=== PATIENT | female | born 1980 | race Caucasian/White ===

== ENCOUNTER 2016-12-22 13:46 | Day surgery (SDC) | payer OTHER ==
[2016-12-18 10:27] VITALS: BMI 23.2
[2016-12-22] MEDS ORDERED: MIDAZOLAM HCL 2 MG/2 ML SINGLE DOSE VIAL ONE (13:54)
[2016-12-22] MEDS ORDERED: PROPOFOL 20 ML ONE ×2 (14:11)
[2016-12-22] MEDS ORDERED: ePHEDrine SULFATE 50 MG/1 ML AMPULE ONE (15:20)
[2016-12-22] MEDS ORDERED: IBUPROFEN 600 MG TABLET (FP) PO PRN (15:30)
[2016-12-22] MEDS ORDERED: IBUPROFEN 800 MG/8 ML IJ IVPB PRN (15:30)
[2016-12-22] MEDS ORDERED: oxyCODONE HCL 5 MG TABLET PO PRN ×2 (15:30→15:32)
[2016-12-22] MEDS ORDERED: ELECTROLYTE-148 SOLN 1,000 ML IV SCH (15:30)
[2016-12-22] MEDS ORDERED: ONDANSETRON 4 MG/2 ML VIAL IVPB PRN (15:30)
[2016-12-22] MEDS ORDERED: LACTATED RINGERS SOLUTION 1,000 ML IV SCH (15:45)
[2016-12-22 16:23] VITALS: TEMP 97.6
[2016-12-22 16:54] VITALS: PULSE 66
[2016-12-22 17:37] VITALS: BP 113/70
--- NOTE | 2016-12-23 09:36 | HP ---
Past Medical History - Primary Care Physician PCP:: Anshu Hillman - Admission Chief Complaint: severe cervical dysplasia History of Present Illness: 36 yo f with hx of severe cervical dysplasia admitted for leep cone, rba discussed , aware risks of infection, bleeding, infertility, incomptent cervix , and post op complication сергей anesthesia risks History Source: Family Member Limitations to Obtaining History: Language Barrier - Past Medical History ...: 1 ...Para: 1 Additional OB History: c/s - Past Surgical History Past Surgical History: Yes: Hx Myomectomy: No Hx Transabdominal Cerclage: No - Smoking History Smoking history: Never smoked Have you smoked in the past 12 months: No - Alcohol/Substance Use Hx Alcohol Use: No History of Substance Use: reports: None - Social History Usual Living Arrangement: Yes: With Spouse History of Recent Travel: No Home Medications - Allergies Allergies/Adverse Reactions: Allergies Allergy/AdvReac Type Severity Reaction Status Date / Time No Known Allergies Allergy Verified 12/22/16 14:08 - Home Medications Home Medications: Ambulatory Orders Ibuprofen [Motrin -] 600 mg PO QID #28 tablet 12/22/16 Review of Systems - Review of Systems Constitutional: reports: No Symptoms HENT: reports: No Symptoms Neck: reports: No Symptoms Cardiovascular: reports: No Symptoms Respiratory: reports: No Symptoms Gastrointestinal: reports: No Symptoms Genitourinary: reports: No Symptoms Breasts: reports: No Symptoms Reported Musculoskeletal: reports: No Symptoms Integumentary: reports: No Symptoms Neurological: reports: No Symptoms Endocrine: reports: No Symptoms Hematology/Lymphatic: reports: No Symptoms Psychiatric: reports: No Symptoms Physical Exam-HORTICULTURE WORKER Vital Signs: Vital Signs Temperature 97.6 F 12/22/16 16:10 Pulse Rate 66 12/22/16 17:35 Respiratory Rate 16 12/22/16 17:35 Blood Pressure 113/70 12/22/16 17:35 O2 Sat by Pulse Oximetry (%) 100 12/22/16 16:10 Constitutional: Yes: Well Nourished, No Distress, Calm Eyes: Yes: WNL, Conjunctiva Clear, EOM Intact HENT: Yes: WNL, Atraumatic, Normocephalic Neck: Yes: WNL, Supple, Trachea Midline Cardiovascular: Yes: WNL, Regular Rate and Rhythm Respiratory: Yes: WNL, Regular, CTA Bilaterally. No: On Venti-Mask Gastrointestinal: Yes: WNL ...Rectal Exam: Yes: WNL Renal/: Yes: WNL External Genitalia: Yes: Normal Vaginal Exam: Yes: Normal Cervix: Yes: Normal Uterus: Yes: Normal Adnexa: Not Palpable: Left, Right Breast(s): Yes: WNL Musculoskeletal: Yes: WNL Extremities: Yes: WNL Integumentary: Yes: WNL Neurological: Yes: WNL, Alert, Oriented ...Motor Strength: WNL Psychiatric: Yes: WNL, Alert, Oriented Problem List - Problem (1) Severe cervical dysplasia Code(s): D06.9 - CARCINOMA IN SITU OF CERVIX, UNSPECIFIED Assessment/Plan leep cone ,ecc, rba discussed
--- NOTE | 2016-12-24 08:46 | OP ---
DATE OF OPERATION: 12/22/2016 PREOPERATIVE DIAGNOSIS: Severe cervical dysplasia. POSTOPERATIVE DIAGNOSIS: Severe cervical dysplasia. PROCEDURES: Loop electrosurgical excision procedure cone biopsy and endocervical curettage. SURGEON: Anshu Hillman MD ANESTHESIA: General. ESTIMATED BLOOD LOSS: 50 mL. OPERATION: The patient was taken to the operating room and had adequate general anesthesia. Examination under anesthesia revealed external genitalia to be normal, vagina was normal, cervix with no gross lesions, a mobile uterus of normal size, adnexa had no masses palpable. Then, with the grasper clamping the vagina, the vagina and cervix were saturated with 4% acetic acid. Then, area of NELA was identified and then Lugol was applied on the cervix and the vagina. Then, with loop cautery, the area of NELA was excised in its entirety and then endocervical curetting was done. The edges were cleaned. Then, with the ball cautery, the area was cauterized and hemostasis was established. The patient tolerated the procedure well and left the OR in good condition. ANSHU HILLMAN M.D. [id number]
--- NOTE | 2016-12-24 12:06 | PATH ---
Surgical Pathology Report Patient Name: JANELL GIL [facility]. Rec. #: [id number] /Age/Gender: 1980 (Age: 36) / F Account: [id number] Location: [facility] Taken: 12/22/2016 Received: 12/23/2016 Reported: 12/24/2016 Physicians: Anshu Hillman M.D. Specimen(s) Received A: LEEP CONE BX B: ENDOCERVICAL CURETTINGS Clinical History Cervical dysplasia Final Diagnosis A. CERVIX, LEEP CONE BIOPSY: DETACHED FRAGMENT OF SQUAMOUS EPITHELIUM WITH HIGH GRADE SQUAMOUS INTRAEPITHELIAL NEOPLASIA (CERVICAL INTRAEPITHELIAL NEOPLASIA 3/NELA 3); FOCUS OF LOW GRADE INTRAEPITHELIAL LESION ALSO PRESENT. SURGICAL RESECTION MARGINS: LIMITED ASSESSMENT DUE TO FRAGMENTED NATURE OF THE SPECIMEN AND DETACHEMENT OF DYSPLASTIC EPITHELIUM. TRANSFORMATION ZONE: FOCALLY PRESENT. B. ENDOCERVIX, CURETTAGE: FRAGMENTS OF BENIGN ENDOCERVICAL TISSUE. Electronically Signed Yoseph Borrego M.D. Gross Description A. Received in formalin labeled "LEEP cone biopsy" are 5 harkins, irregular, unoriented portions of soft tissue ranging from 0.8 x 0.4 x 0.1 cm to 1.4 x 0.8 x 0.3 cm. The specimens are inked blue, serially sectioned and entirely submitted in 4 cassettes. B. Received in formalin labeled "endocervical curettings" is a 1.2 x 1.0 x 0.3 cm aggregate of blood-tinged mucus, possibly containing soft tissue fragments. The formalin is filtered and the specimen is entirely submitted in one cassette. 12/23/2016 [facility]12/23/2016
== END 2016-12-22 17:40 | disposition home or self-care (01) ==
LOC: JASU-SURG 13:46
PROVIDERS: ATTEND Obstetrics & Gynecology
PROC: 0UBC7ZZ Excision of Cervix, Via Natural or Artificial Opening (ICD-10-PCS; principal; 2016-12-22 14:30)
DX: D06.7 Carcinoma in situ of other parts of cervix (principal)
CPT/HCPCS: 84703; 88305-TC; 88307-TC; 94760

== ENCOUNTER 2017-06-02 07:25 | Day surgery (SDC) | payer OTHER ==
[2017-05-27 11:19] VITALS: BMI 24.4
--- NOTE | 2017-06-02 09:13 | HP ---
Past Medical History - Primary Care Physician PCP:: Anshu Hillman - Admission Chief Complaint: HIGH GRADE CERVICAL DYSPLASIA History Source: Patient Limitations to Obtaining History: Language Barrier - Past Surgical History Past Surgical History: Yes: Hx Myomectomy: No Hx Transabdominal Cerclage: No Additional Surgical History: leep cone biopsy .november 2016. path report high grade dysplasis - Smoking History Smoking history: Never smoked Have you smoked in the past 12 months: No - Alcohol/Substance Use Hx Alcohol Use: No History of Substance Use: reports: None - Social History History of Recent Travel: No Home Medications - Allergies Allergies/Adverse Reactions: Allergies Allergy/AdvReac Type Severity Reaction Status Date / Time No Known Allergies Allergy Verified 06/02/17 08:06 - Home Medications Home Medications: Ambulatory Orders Ibuprofen [Motrin -] 600 mg PO QID #28 tablet 06/02/17 Review of Systems - Review of Systems Constitutional: reports: No Symptoms Eyes: reports: No Symptoms HENT: reports: No Symptoms Neck: reports: No Symptoms Cardiovascular: reports: No Symptoms Respiratory: reports: No Symptoms Gastrointestinal: reports: No Symptoms Genitourinary: reports: No Symptoms Breasts: reports: No Symptoms Reported Musculoskeletal: reports: No Symptoms Integumentary: reports: No Symptoms Neurological: reports: No Symptoms Endocrine: reports: No Symptoms Hematology/Lymphatic: reports: No Symptoms Psychiatric: reports: No Symptoms 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 Vital Signs: Vital Signs Temperature 98.0 F 06/02/17 08:04 Pulse Rate 67 05/27/17 11:12 Respiratory Rate 20 06/02/17 08:04 Blood Pressure 116/81 06/02/17 08:04 O2 Sat by Pulse Oximetry (%) 100 06/02/17 08:03 Constitutional: Yes: Well Nourished, No Distress, Calm Eyes: Yes: WNL, Conjunctiva Clear, EOM Intact HENT: Yes: WNL, Atraumatic, Normocephalic Neck: Yes: WNL, Supple, Trachea Midline Cardiovascular: Yes: WNL, Regular Rate and Rhythm Respiratory: Yes: WNL, Regular, CTA Bilaterally Gastrointestinal: Yes: WNL ...Rectal Exam: Yes: WNL Renal/: Yes: WNL Vaginal Exam: Yes: Normal Cervix: Yes: Normal Uterus: Yes: Normal Adnexa: Not Palpable: Left, Right Breast(s): Yes: WNL Musculoskeletal: Yes: WNL Extremities: Yes: WNL Integumentary: Yes: WNL Neurological: Yes: WNL, Alert, Oriented ...Motor Strength: WNL Psychiatric: Yes: WNL, Alert, Oriented Problem List - Problem (1) High grade squamous intraepithelial cervical dysplasia Code(s): R87.613 - HIGH GRADE INTREPITH LESION CYTO SMR CRVX (HGSIL) Assessment/Plan LEEP CONE, ecc, RISKS DISCUSSED , RISKS OF BLEEDING, INFECTION, CERVICAL INCOMPTENCY, INFERTILITY .AND INJURY TO SURROUNDING TISSUE
[2017-06-02] MEDS ORDERED: MIDAZOLAM HCL 2 MG/2 ML SINGLE DOSE VIAL ONE (10:00)
[2017-06-02] MEDS ORDERED: oxyCODONE HCL 5 MG TABLET PO PRN (10:27)
[2017-06-02] MEDS ORDERED: IBUPROFEN 800 MG/8 ML IJ IVPB PRN (10:27)
[2017-06-02] MEDS ORDERED: IBUPROFEN 600 MG TABLET (FP) PO PRN (10:27)
[2017-06-02] MEDS ORDERED: ONDANSETRON 4 MG/2 ML VIAL IVPUSH PRN ×2 (10:27→11:20)
[2017-06-02] MEDS ORDERED: ELECTROLYTE-148 SOLN 1,000 ML IV SCH (10:30)
[2017-06-02] MEDS ORDERED: PROMETHAZINE HCL 25 MG/1 ML VIAL IVPB PRN (11:20)
[2017-06-02 12:20] VITALS: TEMP 97.9
[2017-06-02 13:45] VITALS: BP 112/65; PULSE 75
--- NOTE | 2017-06-03 11:28 | OP ---
DATE OF OPERATION: 06/02/2017 PREOPERATIVE DIAGNOSIS: High-grade cervical dysplasia. POSTOPERATIVE DIAGNOSIS: High-grade cervical dysplasia. PROCEDURE: Excision of the cervical area with cautery and colposcopy. SURGEON: Anshu Hillman MD ANESTHESIA: General. ANESTHESIOLOGIST: Jyothi Singleton MD ESTIMATED BLOOD LOSS: 30 mL. DESCRIPTION OF PROCEDURE: The patient was taken to the operating room, and under adequate general anesthesia in dorsal lithotomy position, examination under anesthesia revealed external genitalia to be normal. Vagina was normal. Cervix was adherent both fornices to the vaginal wall. Uterus was normal sized. Adnexa, no masses were palpable. Then, with a Glass speculum in the vagina, cervix was visualized. Cervix appeared to be irregular from the previous LEEP procedure and was partially covered and overlapped anteriorly with the bladder and posteriorly with the rectum, and visualization of the cervix was very limited. The vagina and cervix were saturated with acetic acid and then cleaned, and then, colposcopy examination was done, but was unsatisfactory to see the lesion because of the limited visualization of the cervix and technical difficulty from overlapping bladder and the rectum over the cervix. Cervical os also was not visualized. Therefore, a small area of the cervix which was visualized was excised with the cautery and sent for the pathology. Then, procedure was terminated. Patient later was advised to follow up with CERTIFIED INCOME TAX PREPARER/Oncology at [facility] for which referral will be given. Importance of followup was discussed with the patient. ANSHU HLILMAN M.D. /[id number]
--- NOTE | 2017-06-03 15:51 | PATH ---
Surgical Pathology Report Patient Name: JANELL GIL [facility]. Rec. #: [id number] /Age/Gender: 1980 (Age: 36) / F Account: [id number] Location: [facility] Taken: 06/02/2017 Received: 06/02/2017 Reported: 06/03/2017 Physicians: Anshu Hillman M.D. Specimen(s) Received CERVICAL CONE LEEP BIOPSY Clinical History Preoperative diagnosis: High grade cervical dysplasia Final Diagnosis CERVIX, LEEP: LOW GRADE INTRAEPITHELIAL LESION (NELA 1). NEAL-1 EXTENDS TO THE CAUTERIZED RESECTION MARGIN. Electronically Signed Concepcion Capone M.D. Gross Description Received in formalin labeled "LEEP biopsy," are 3 harkins, irregular, unoriented portions of soft tissue ranging from 0.4 x 0.2 x 0.1 cm to 0.9 x 0.3 x 0.2 cm. The specimens are inked green, serially sectioned and entirely submitted in 3 cassettes. /06/02/2017 [facility]06/02/2017
== END 2017-06-02 13:30 | disposition home or self-care (01) ==
LOC: JASU-SURG 07:25
PROVIDERS: ATTEND Obstetrics & Gynecology
PROC: 0UBC7ZX Excision of Cervix, Via Natural or Artificial Opening, Diagnostic (ICD-10-PCS; principal; 2017-06-02 09:00)
DX: N87.0 Mild cervical dysplasia (principal)
CPT/HCPCS: 84703; 88307-TC